=== PATIENT | female | born 1955 | race Two or more races ===

== ENCOUNTER 2020-12-20 16:11 | Emergency (ER) | payer BC ==
[~2020-12-20] VITALS: Ht 152.4 cm; Wt 59.0 kg
[2020-12-20] MEDS ORDERED: LIPITOR40 M1 (16:50)
[2020-12-20] MEDS ORDERED: LEVOTHYROXINE75 MC1 (16:51)
[2020-12-20] MEDS ORDERED: MACRODANTIN100 M1 PO (17:44)
== END 2020-12-20 19:23 | disposition home or self-care (01) ==
LOC: ER 16:11
DX: N39.0 Urinary tract infection, site not specified (principal); R31.29 Other microscopic hematuria